=== PATIENT | female | born 1950 | race Two or more races ===

== ENCOUNTER 2021-07-29 10:19 | Inpatient (IN) | payer BC, MEDICARE ==
[~2021-07-29] VITALS: Ht 172.7 cm; Wt 72.8 kg
[2021-07-29] MEDS ORDERED: methylPREDNISolone SOD SUCC 125 MG/2 ML VL IV ONE (10:30)
[2021-07-29 12:05] LABS: Basophils # (auto) 0 10 ^3/uL (0-0.2); Basophils % (auto) 0.4 % (0.0-2.0); Eosinophils # (auto) 0 10 ^3/uL (0-0.8); Eosinophils % (auto) 0.2 % (0.0-7.0); Hematocrit 40.3 % (36.0-46.0); Lymphocytes # (auto) 0.7 10 ^3/uL (0.4-5.4); Lymphocytes % (auto) 15.7 % (10.0-50.0); Mean Corpuscular Hemoglobin 31.4 pg (28.0-32.0); Mean Corpuscular Hgb Conc. 34.7 g/dL (32.0-36.0); Mean Corpuscular Volume 90.3 fL (80.0-100.0); Monocytes # (auto) 0.3 10 ^3/uL (0-1.3); Monocytes % (auto) 6.8 % (0.0-12.0); Neutrophils # (auto) 3.2 10 ^3/uL (1.6-8.6); Neutrophils % (auto) 76.9 % (37.0-80.0); Nucleated Red Blood Cells % 0.1 %; Red Blood Cells 4.46 10^6/uL (4.0-5.20); Red Cell Distribution Width 13.4 % (11.8-14.3); White Blood Cell 4.2 10^3/uL (4.4-10.8)
[2021-07-29 13:12] LABS: Albumin 2.9 g/dL (3.4-5.0); BUN/Creatinine Ratio 16.4; Bilirubin, Total 0.2 mg/dL (0.2-1.0); CRP High Sensitivity 5.26 mg/dL (< 0.3); Calcium 8.3 mg/dL (8.5-10.1); Magnesium 2.7 mg/dL (1.6-2.6); Total Protein 7.1 g/dL (6.4-8.2)
[2021-07-29] MEDS ORDERED: MORPHINE SULFATE INJECTION 2 MG/ML SYRG IV PRN ×2 (13:15→14:45)
[2021-07-29] MEDS ORDERED: NITROGLYCERIN 0.4 MG SL TAB SL PRN ×2 (13:15→14:45)
[2021-07-29] MEDS ORDERED: diphenhdrAMINE HCL 25 MG CAP PO ONE ×2 (14:15→22:55)
[2021-07-29] MEDS ORDERED: DOCUSATE SOD 100 MG CAP PO PRN (14:45)
[2021-07-29] MEDS ORDERED: ACETAMINOPHEN 325 MG TAB PO PRN (14:45)
[2021-07-29] MEDS ORDERED: ACETAMINOPHEN 500 MG TAB PO PRN (14:45)
[2021-07-29] MEDS ORDERED: REMDESIVIR PER PHARMACY 0 ML IV SCH (14:45)
[2021-07-29] MEDS ORDERED: ALUM & MAG HYDROX-SIMETH LIQ(MAALOX) 30 ML PO PRN (14:45)
[2021-07-29] MEDS ORDERED: ALBUMIN 25% 100 ML IV ONE (15:00)
[2021-07-29] MEDS ORDERED: FAMOTIDINE (10MG/ML) 2ML VL IV ONE (15:00)
[2021-07-29] MEDS ORDERED: REMDESIVIR 200 MG in NS 210ml LOADING DOSE ADULT IV ONE (15:30)
[2021-07-29 15:36] LABS: Cholesterol 126 mg/dL (< 200)
[2021-07-29 15:39] LABS: HDL Cholesterol 41 mg/dL (40-59); LDL Cholesterol 71 mg/dL (< 100); Triglycerides 150 mg/dL (< 150)
[2021-07-29 15:43] LABS: Thyroid Stimulating Hormone 0.87 uIU/mL (0.358-3.74)
[2021-07-29 16:13] LABS: Urine Bacteria NONE SEEN /hpf (None Seen); Urine Blood Negative /uL (Negative); Urine Specific Gravity 1.006 (1.001-1.035); Urine WBC 1 /hpf (0 - 5)
[2021-07-29 16:20] LABS: Alcohol, Urine < 3.0 mg/dL (0-10); Amphetamine Screen, Urine NEGATIVE (NEGATIVE); Barbiturate Scree,Urine NEGATIVE (NEGATIVE); Benzodiazephine Screen, Urine NEGATIVE (NEGATIVE); Cannabinoid Screen, Urine NEGATIVE (NEGATIVE); Cocaine Screen, Urine NEGATIVE (NEGATIVE); Opiate Scree,Urine NEGATIVE (NEGATIVE); Phencyclidine Screen, Urine NEGATIVE (NEGATIVE)
[2021-07-29] MEDS: SODIUM CHLORIDE 0.9% 1,000 ML IV SCH (17:25)
[2021-07-29] MEDS: FUROSEMIDE 20 MG/2 ML VIAL IV SCH (18:14)
[2021-07-29] MEDS: BUDESONIDE (INHALATION) 180 MCG IH IN SCH (20:57)
[2021-07-29] MEDS: ALBUTEROL SULF HFA 90MCG INH 200DOSE IN PRN (20:57)
[2021-07-29] MEDS: POTASSIUM CHL 20 Meq TABLET PO SCH (22:00)
[2021-07-29] MEDS ORDERED: FAMOTIDINE (10MG/ML) 2ML VL IV SCH (22:00)
[2021-07-29] MEDS: ATORVASTATIN 20 MG TAB PO SCH (22:00)
[2021-07-29] MEDS: carBAMazepine 200 MG TAB PO SCH (22:01)
[2021-07-29] MEDS: ENOXAPARIN SOD 40 MG/0.4 ML SYRINGE SC SCH (22:01)
[2021-07-29] MEDS: DOXYCYCLINE 100MG/250ML 250 ML IV SCH (22:42)
[2021-07-29 23:28] VITALS: BP 109/64
[2021-07-30] MEDS: BUDESONIDE (INHALATION) 180 MCG IH IN SCH ×2 (06:15→20:59)
[2021-07-30] MEDS: carBAMazepine 200 MG TAB PO SCH ×3 (06:21→21:49)
[2021-07-30] MEDS: FUROSEMIDE 20 MG/2 ML VIAL IV SCH ×2 (06:21→17:12)
[2021-07-30] MEDS: SODIUM CHLORIDE 0.9% 1,000 ML IV SCH (06:22)
[2021-07-30] MEDS: ALBUTEROL SULF HFA 90MCG INH 200DOSE IN PRN ×2 (06:40→20:59)
[2021-07-30] MEDS: HYDROcodone-ACET 5/325MG TAB PO PRN ×2 (07:50→20:00)
[2021-07-30 07:55] LABS: Basophils # (auto) 0 10 ^3/uL (0-0.2); Basophils % (auto) 0.2 % (0.0-2.0); Eosinophils # (auto) 0 10 ^3/uL (0-0.8); Hematocrit 41.7 % (36.0-46.0); Lymphocytes % (auto) 23.1 % (10.0-50.0); Mean Corpuscular Hemoglobin 30.9 pg (28.0-32.0); Mean Corpuscular Hgb Conc. 33.5 g/dL (32.0-36.0); Mean Corpuscular Volume 92.2 fL (80.0-100.0); Monocytes # (auto) 0.4 10 ^3/uL (0-1.3); Monocytes % (auto) 9.6 % (0.0-12.0); Neutrophils % (auto) 67.1 % (37.0-80.0); Nucleated Red Blood Cells % 0.1 %; Red Blood Cells 4.53 10^6/uL (4.0-5.20); Red Cell Distribution Width 13.5 % (11.8-14.3); White Blood Cell 4.4 10^3/uL (4.4-10.8)
[2021-07-30 08:13] LABS: Albumin 3.5 g/dL (3.4-5.0); Calcium 8.6 mg/dL (8.5-10.1); Magnesium 2.5 mg/dL (1.6-2.6); Potassium 3.9 mmol/L (3.5-5.1)
[2021-07-30 08:21] LABS: BUN/Creatinine Ratio 18.8; Bilirubin, Total 0.3 mg/dL (0.2-1.0); Total Protein 7.9 g/dL (6.4-8.2); Uric Acid 2.9 mg/dL (2.6-6.0)
[2021-07-30 08:36] LABS: INR 0.99 (0.9-1.15); Partial Thromboplastin Time 31.8 sec (23.6-33.0)
[2021-07-30 09:23] LABS: Phosphorus 2.7 mg/dL (2.5-4.90)
[2021-07-30] MEDS: ASPirin 81 mg TAB PO SCH (09:57)
[2021-07-30] MEDS: ASCORBIC ACID 1,000 MG TAB PO SCH (09:57)
[2021-07-30] MEDS: POTASSIUM CHL 20 Meq TABLET PO SCH ×2 (09:57→21:48)
[2021-07-30] MEDS: CHOLECALCIFEROL (VITD3) 2,000 UNIT CAP/TAB PO SCH (09:58)
[2021-07-30] MEDS: ZINC SULFATE 220mg CAP or TAB PO SCH (09:58)
[2021-07-30] MEDS: ENOXAPARIN SOD 40 MG/0.4 ML SYRINGE SC SCH ×2 (09:58→21:49)
[2021-07-30] MEDS: DexAMETHasone SOD PHOS 10MG/1ML VIAL INJ IV SCH (09:58)
[2021-07-30] MEDS: DOXYCYCLINE 100MG/250ML 250 ML IV SCH (09:59)
[2021-07-30] MEDS ORDERED: IVERMECTIN 3 MG TAB PO SCH (10:00)
[2021-07-30] MEDS ORDERED: AZIT250T9 PO (10:04)
[2021-07-30] MEDS ORDERED: CARB200T4 PO (10:04)
[2021-07-30] MEDS ORDERED: ALBU108A5 INH (10:04)
[2021-07-30] MEDS ORDERED: PRED20TA2 PO (10:04)
[2021-07-30] MEDS ORDERED: FLUT50SP NAS (10:04)
[2021-07-30] MEDS ORDERED: CLON0.5T10 PO (10:04)
[2021-07-30] MEDS ORDERED: ERGOCALCIFEROL 50,000 UNIT(1.25MG) CAP PO SCH (13:00)
[2021-07-30] MEDS ORDERED: levoFLOXacin 500 MG TAB PO ONE (15:15)
[2021-07-30] MEDS: REMDESIVIR 100mg 100 MG in SODIUM CHL 0.9% 230 ML IV SCH (15:38)
[2021-07-30] MEDS ORDERED: CARB200T PO (16:21)
[2021-07-30] MEDS ORDERED: ATOR10TA PO (16:21)
[2021-07-30 17:00] VITALS: BP 104/68
[2021-07-30 21:23] VITALS: BP 95/60
[2021-07-30] MEDS: ATORVASTATIN 20 MG TAB PO SCH (21:48)
[2021-07-30] MEDS: LORazepam 0.5 MG TAB PO PRN (23:36)
[2021-07-31] MEDS: SODIUM CHLORIDE 0.9% 1,000 ML IV SCH (00:05)
[2021-07-31] MEDS ORDERED: diphenhdrAMINE HCL 50 MG/1 ML VL IV ONE (04:30)
[2021-07-31] MEDS: carBAMazepine 200 MG TAB PO SCH ×3 (05:24→22:20)
[2021-07-31] MEDS: FUROSEMIDE 20 MG/2 ML VIAL IV SCH ×2 (05:24→17:39)
[2021-07-31 05:30] VITALS: BP 101/64
[2021-07-31] MEDS: BUDESONIDE (INHALATION) 180 MCG IH IN SCH ×2 (07:12→19:28)
[2021-07-31 07:28] LABS: Potassium 4.2 mmol/L (3.5-5.1)
[2021-07-31 07:37] LABS: Albumin 3.4 g/dL (3.4-5.0); BUN/Creatinine Ratio 28.3; Bilirubin, Total 0.3 mg/dL (0.2-1.0); Calcium 8.5 mg/dL (8.5-10.1)
[2021-07-31 09:00] VITALS: BP 103/61
[2021-07-31] MEDS: ZINC SULFATE 220mg CAP or TAB PO SCH (10:00)
[2021-07-31] MEDS: ENOXAPARIN SOD 40 MG/0.4 ML SYRINGE SC SCH ×2 (10:00→22:20)
[2021-07-31] MEDS: DexAMETHasone SOD PHOS 10MG/1ML VIAL INJ IV SCH (10:00)
[2021-07-31] MEDS ORDERED: levoFLOXacin 500 MG TAB PO SCH (10:00)
[2021-07-31] MEDS: CHOLECALCIFEROL (VITD3) 2,000 UNIT CAP/TAB PO SCH (10:00)
[2021-07-31] MEDS: POTASSIUM CHL 20 Meq TABLET PO SCH ×2 (10:00→22:19)
[2021-07-31] MEDS: ASPirin 81 mg TAB PO SCH (10:00)
[2021-07-31] MEDS: ASCORBIC ACID 1,000 MG TAB PO SCH (10:00)
[2021-07-31] MEDS ORDERED: TEMAZEPAM 15 MG CAP PO PRN (11:15)
[2021-07-31] MEDS ORDERED: diphenhdrAMINE HCL 25 MG CAP PO PRN (11:15)
[2021-07-31] MEDS ORDERED: methylPREDNISolone SOD SUCC 40 MG/ML VL IM ONE (11:30)
[2021-07-31] MEDS ORDERED: methylPREDNISolone SOD SUCC 40 MG/ML VL IV ONE ×2 (12:15→15:15)
[2021-07-31 13:00] VITALS: BP 113/71
[2021-07-31] MEDS ORDERED: FAMOTIDINE 20 MG TAB PO ONE (14:00)
[2021-07-31] MEDS: REMDESIVIR 100mg 100 MG in SODIUM CHL 0.9% 230 ML IV SCH (14:50)
[2021-07-31] MEDS ORDERED: POLYETHYLENE GLYCOL 17 GM PWDR PO ONE (15:15)
[2021-07-31] MEDS ORDERED: guaiFENesin-CODEINE Liq 5 ML UD PO PRN (15:30)
[2021-07-31] MEDS: guaiFENesin 200 MG/10 ML UD PO PRN ×2 (16:09→22:21)
[2021-07-31 17:00] VITALS: BP 103/60
[2021-07-31] MEDS: ALBUTEROL SULF HFA 90MCG INH 200DOSE IN PRN (19:27)
[2021-07-31] MEDS: ATORVASTATIN 20 MG TAB PO SCH (22:20)
[2021-07-31 22:53] VITALS: BP 111/67
[2021-08-01 05:11] VITALS: BP 90/67
[2021-08-01] MEDS: FUROSEMIDE 20 MG/2 ML VIAL IV SCH (06:00)
[2021-08-01] MEDS: carBAMazepine 200 MG TAB PO SCH ×3 (06:12→22:00)
[2021-08-01] MEDS: ALBUTEROL SULF HFA 90MCG INH 200DOSE IN PRN ×2 (06:17→21:56)
[2021-08-01] MEDS: BUDESONIDE (INHALATION) 180 MCG IH IN SCH ×2 (06:17→21:56)
[2021-08-01 07:33] LABS: Potassium 4.1 mmol/L (3.5-5.1)
[2021-08-01 07:40] LABS: Albumin 3.1 g/dL (3.4-5.0); BUN/Creatinine Ratio 34.8; Bilirubin, Total 0.3 mg/dL (0.2-1.0); Calcium 8.3 mg/dL (8.5-10.1); Total Protein 6.5 g/dL (6.4-8.2)
[2021-08-01 09:00] VITALS: BP 95/56
[2021-08-01] MEDS: ZINC SULFATE 220mg CAP or TAB PO SCH (10:02)
[2021-08-01] MEDS: ASPirin 81 mg TAB PO SCH (10:02)
[2021-08-01] MEDS: DexAMETHasone SOD PHOS 10MG/1ML VIAL INJ IV SCH (10:02)
[2021-08-01] MEDS: ENOXAPARIN SOD 40 MG/0.4 ML SYRINGE SC SCH ×2 (10:03→22:00)
[2021-08-01] MEDS: CHOLECALCIFEROL (VITD3) 2,000 UNIT CAP/TAB PO SCH (10:03)
[2021-08-01] MEDS: FAMOTIDINE 20 MG TAB PO SCH (10:03)
[2021-08-01] MEDS: ASCORBIC ACID 1,000 MG TAB PO SCH (10:04)
[2021-08-01] MEDS: POTASSIUM CHL 20 Meq TABLET PO SCH (10:04)
[2021-08-01 12:45] VITALS: BP 105/60
[2021-08-01] MEDS: REMDESIVIR 100mg 100 MG in SODIUM CHL 0.9% 230 ML IV SCH (14:39)
[2021-08-01 17:00] VITALS: BP 103/62
[2021-08-01] MEDS: HYDROcodone-ACET 5/325MG TAB PO PRN (20:26)
[2021-08-01 22:00] VITALS: BP 95/45
[2021-08-01] MEDS: ATORVASTATIN 20 MG TAB PO SCH (22:00)
[2021-08-02] VITALS (8 sets, daily range): BP systolic 92–143; BP diastolic 45–86
[2021-08-02] MEDS: carBAMazepine 200 MG TAB PO SCH ×3 (05:21→21:10)
[2021-08-02 06:00] LABS: Basophils # (auto) 0 10 ^3/uL (0-0.2); Basophils % (auto) 0.4 % (0.0-2.0); Eosinophils # (auto) 0 10 ^3/uL (0-0.8); Eosinophils % (auto) 0.1 % (0.0-7.0); Hematocrit 37.6 % (36.0-46.0); Hemoglobin 13.1 g/dL (12.2-16.2); Lymphocytes # (auto) 0.8 10 ^3/uL (0.4-5.4); Lymphocytes % (auto) 14.4 % (10.0-50.0); Mean Corpuscular Hemoglobin 30.8 pg (28.0-32.0); Mean Corpuscular Hgb Conc. 34.9 g/dL (32.0-36.0); Mean Corpuscular Volume 88.3 fL (80.0-100.0); Monocytes # (auto) 0.5 10 ^3/uL (0-1.3); Neutrophils # (auto) 4.1 10 ^3/uL (1.6-8.6); Neutrophils % (auto) 76.1 % (37.0-80.0); Red Blood Cells 4.25 10^6/uL (4.0-5.20); White Blood Cell 5.4 10^3/uL (4.4-10.8)
[2021-08-02 06:35] LABS: BUN/Creatinine Ratio 32.6; Bilirubin, Total 0.3 mg/dL (0.2-1.0); Calcium 8.7 mg/dL (8.5-10.1); Total Protein 6.5 g/dL (6.4-8.2)
[2021-08-02] MEDS: ONDANSETRON HCL 4 MG/2 ML VIAL IV PRN ×2 (06:58→17:28)
[2021-08-02] MEDS: MORPHINE SULFATE INJECTION 2 MG/ML SYRG IV PRN ×2 (06:59→17:29)
[2021-08-02] MEDS: BUDESONIDE (INHALATION) 180 MCG IH IN SCH ×2 (07:03→21:34)
[2021-08-02] MEDS: ALBUTEROL SULF HFA 90MCG INH 200DOSE IN PRN ×2 (07:03→21:34)
[2021-08-02] MEDS: ZINC SULFATE 220mg CAP or TAB PO SCH (09:44)
[2021-08-02] MEDS: CHOLECALCIFEROL (VITD3) 2,000 UNIT CAP/TAB PO SCH (09:44)
[2021-08-02] MEDS: POTASSIUM CHL 20 Meq TABLET PO SCH (09:44)
[2021-08-02] MEDS: ASPirin 81 mg TAB PO SCH (09:44)
[2021-08-02] MEDS: ASCORBIC ACID 1,000 MG TAB PO SCH (09:46)
[2021-08-02] MEDS: DexAMETHasone SOD PHOS 10MG/1ML VIAL INJ IV SCH (09:46)
[2021-08-02] MEDS: FAMOTIDINE 20 MG TAB PO SCH (09:46)
[2021-08-02] MEDS: ENOXAPARIN SOD 40 MG/0.4 ML SYRINGE SC SCH ×2 (09:46→21:11)
[2021-08-02] MEDS: FUROSEMIDE 20 MG/2 ML VIAL IV SCH (09:47)
[2021-08-02] MEDS: REMDESIVIR 100mg 100 MG in SODIUM CHL 0.9% 230 ML IV SCH (15:05)
[2021-08-02] MEDS: ATORVASTATIN 20 MG TAB PO SCH (21:10)
[2021-08-03 05:00] VITALS: BP 96/66
[2021-08-03] MEDS: carBAMazepine 200 MG TAB PO SCH ×3 (06:11→20:09)
[2021-08-03] MEDS: BUDESONIDE (INHALATION) 180 MCG IH IN SCH ×2 (07:45→19:53)
[2021-08-03] MEDS: ALBUTEROL SULF HFA 90MCG INH 200DOSE IN PRN ×2 (07:45→19:53)
[2021-08-03 09:00] VITALS: BP 100/63
[2021-08-03] MEDS: ASCORBIC ACID 1,000 MG TAB PO SCH (10:23)
[2021-08-03] MEDS: FAMOTIDINE 20 MG TAB PO SCH (10:23)
[2021-08-03] MEDS: DexAMETHasone SOD PHOS 10MG/1ML VIAL INJ IV SCH (10:24)
[2021-08-03] MEDS: ZINC SULFATE 220mg CAP or TAB PO SCH (10:24)
[2021-08-03] MEDS: ASPirin 81 mg TAB PO SCH (10:24)
[2021-08-03] MEDS: POTASSIUM CHL 20 Meq TABLET PO SCH (10:24)
[2021-08-03] MEDS: CHOLECALCIFEROL (VITD3) 2,000 UNIT CAP/TAB PO SCH (10:24)
[2021-08-03] MEDS: ENOXAPARIN SOD 40 MG/0.4 ML SYRINGE SC SCH ×2 (10:25→20:09)
[2021-08-03] MEDS: FUROSEMIDE 20 MG/2 ML VIAL IV SCH (10:25)
[2021-08-03 13:00] VITALS: BP 102/61
[2021-08-03 17:00] VITALS: BP 111/69
[2021-08-03] MEDS ORDERED: LACTULOSE 20Gm/30ML SOLN PO ONE (19:00)
[2021-08-03 20:00] VITALS: BP 109/51
[2021-08-03] MEDS: ATORVASTATIN 20 MG TAB PO SCH (20:09)
[2021-08-03] MEDS: HYDROcodone-ACET 5/325MG TAB PO PRN (20:10)
[2021-08-03 21:23] VITALS: BP 110/61
[2021-08-04 05:39] VITALS: BP_SYST 113; BP_SYST 97; BP_DIAS 65
[2021-08-04] MEDS: carBAMazepine 200 MG TAB PO SCH ×4 (06:00→21:50)
[2021-08-04] MEDS: BUDESONIDE (INHALATION) 180 MCG IH IN SCH ×2 (07:46→21:48)
[2021-08-04] MEDS: ALBUTEROL SULF HFA 90MCG INH 200DOSE IN PRN ×2 (07:46→21:48)
[2021-08-04 09:00] VITALS: BP 102/59
[2021-08-04] MEDS: FAMOTIDINE 20 MG TAB PO SCH (10:30)
[2021-08-04] MEDS: ASPirin 81 mg TAB PO SCH (10:30)
[2021-08-04] MEDS: DexAMETHasone SOD PHOS 10MG/1ML VIAL INJ IV SCH (10:31)
[2021-08-04] MEDS: ASCORBIC ACID 1,000 MG TAB PO SCH (10:31)
[2021-08-04] MEDS: POTASSIUM CHL 20 Meq TABLET PO SCH (10:31)
[2021-08-04] MEDS: CHOLECALCIFEROL (VITD3) 2,000 UNIT CAP/TAB PO SCH (10:31)
[2021-08-04] MEDS: ZINC SULFATE 220mg CAP or TAB PO SCH (10:31)
[2021-08-04] MEDS: ENOXAPARIN SOD 40 MG/0.4 ML SYRINGE SC SCH ×2 (10:32→21:49)
[2021-08-04] MEDS: FUROSEMIDE 20 MG/2 ML VIAL IV SCH (10:32)
[2021-08-04 13:00] VITALS: BP 106/62
[2021-08-04] MEDS: HYDROcodone-ACET 5/325MG TAB PO PRN (15:07)
[2021-08-04 17:00] VITALS: BP 107/70
[2021-08-04] MEDS: ATORVASTATIN 20 MG TAB PO SCH (21:50)
[2021-08-04 22:00] VITALS: BP 102/63
[2021-08-05] MEDS: LORazepam 0.5 MG TAB PO PRN (02:30)
[2021-08-05] MEDS: HYDROcodone-ACET 5/325MG TAB PO PRN (02:31)
[2021-08-05 05:00] VITALS: BP 98/62
[2021-08-05] MEDS: ALBUTEROL SULF HFA 90MCG INH 200DOSE IN PRN (05:54)
[2021-08-05] MEDS: BUDESONIDE (INHALATION) 180 MCG IH IN SCH (05:54)
[2021-08-05] MEDS: carBAMazepine 200 MG TAB PO SCH ×2 (06:14→13:22)
[2021-08-05 09:00] VITALS: BP 95/68
[2021-08-05] MEDS: DexAMETHasone SOD PHOS 10MG/1ML VIAL INJ IV SCH (10:08)
[2021-08-05] MEDS: FUROSEMIDE 20 MG/2 ML VIAL IV SCH (10:08)
[2021-08-05] MEDS: ASPirin 81 mg TAB PO SCH (10:08)
[2021-08-05] MEDS: ZINC SULFATE 220mg CAP or TAB PO SCH (10:08)
[2021-08-05] MEDS: CHOLECALCIFEROL (VITD3) 2,000 UNIT CAP/TAB PO SCH (10:09)
[2021-08-05] MEDS: ENOXAPARIN SOD 40 MG/0.4 ML SYRINGE SC SCH (10:09)
[2021-08-05] MEDS: ASCORBIC ACID 1,000 MG TAB PO SCH (10:09)
[2021-08-05] MEDS: FAMOTIDINE 20 MG TAB PO SCH (10:09)
[2021-08-05] MEDS: POTASSIUM CHL 20 Meq TABLET PO SCH (10:09)
[2021-08-05 12:49] VITALS: BP 91/57
== END 2021-08-05 17:09 | disposition home or self-care (01) | DRG 177 ==
LOC: ER 10:19 → EDBD 10:19 → TELE 13:04 → TELE-EAST 07-30 15:59
PROVIDERS: ADMIT Hospitalist; ATTEND Internal Medicine
PROC: XW033E5 Introduction of Remdesivir Anti-infective into Peripheral Vein, Percutaneous Approach, New Technology Group 5 (ICD-10-PCS; principal; 2021-07-29)
DX: U07.1 COVID-19 (principal); J12.82 Pneumonia due to coronavirus disease 2019; J96.21 Acute and chronic respiratory failure with hypoxia; J44.1 Chronic obstructive pulmonary disease with (acute) exacerbation; J45.901 Unspecified asthma with (acute) exacerbation; D68.59 Other primary thrombophilia; J44.0 Chronic obstructive pulmonary disease with (acute) lower respiratory infection; N13.6 Pyonephrosis; D89.834 Cytokine release syndrome, grade 4; R65.10 Systemic inflammatory response syndrome (SIRS) of non-infectious origin without acute organ dysfunction; F39 Unspecified mood [affective] disorder; E88.09 Other disorders of plasma-protein metabolism, not elsewhere classified; F41.9 Anxiety disorder, unspecified; M81.0 Age-related osteoporosis without current pathological fracture; E78.5 Hyperlipidemia, unspecified; K59.00 Constipation, unspecified; M19.90 Unspecified osteoarthritis, unspecified site; Z83.3 Family history of diabetes mellitus; Z88.8 Allergy status to other drugs, medicaments and biological substances
CPT/HCPCS: 36415; 36600; 71045; 74018; 76705; 80053; 80061; 80307; 81001; 82306; 82728; 82805; 83036; 83605; 83615; 83735; 83880; 84100; 84443; 84484; 84550; 85025; 85379; 85610; 85730; 86141; 87040; 87086; 87426; 93005; 94640; 96374; 97110; 97116; 97530; 99291; G0378; J1100; J2405; J3490; P9047

== ENCOUNTER 2023-03-21 09:35 | Emergency (ER) | payer MEDICARE, OTHER ==
[~2023-03-21] VITALS: Ht 170.2 cm; Wt 80.3 kg
[~2023-03-21 09:35] MED LIST: ALBU108A5 INH; ATOR10TA PO; AZIT-43 PO; CARB200T PO; CARB200T4 PO; CLON0.5T4 PO; FLUT50SP NAS; PRED20TA2 PO
[2023-03-21 09:46] VITALS: BP 131/64
[2023-03-21] MEDS ORDERED: PRED20TA2 PO (11:01)
== END 2023-03-21 11:12 | disposition home or self-care (01) ==
LOC: ER 09:35
DX: M50.10 Cervical disc disorder with radiculopathy, unspecified cervical region (principal); Z98.51 Tubal ligation status; Z88.0 Allergy status to penicillin; Z88.6 Allergy status to analgesic agent
CPT/HCPCS: 72040

== ENCOUNTER 2024-06-24 03:52 | Emergency (ER) | payer BC, MEDICARE, OTHER ==
[~2024-06-24] VITALS: Ht 170.2 cm; Wt 75.0 kg
[2024-06-24 04:24] VITALS: PULSE 59; RESP 13; O2SAT 96
[2024-06-24] MEDS: MORPHINE SULFATE 4 MG/ML SYR/VIAL IV ONE (04:58)
[2024-06-24] MEDS: ONDANSETRON HCL 4 MG/2 ML VIAL IV ONE ×2 (04:59→10:17)
[2024-06-24] MEDS: SODIUM CHLORIDE 0.9% 1,000 ML IV ONE ×2 (04:59→11:30)
[2024-06-24] MEDS: PANTOPRAZOLE 40 MG/10 ML VIAL INJ IV ONE (04:59)
[2024-06-24 05:57] LABS: Urine Bacteria None Seen /hpf (None Seen)
[2024-06-24 06:05] LABS: Urine Blood Negative /uL (Negative); Urine Clarity Clear (Clear); Urine Color Light-Yellow (Yellow); Urine Mucus FEW (None Seen); Urine Protein, UAD Negative (Negative); Urine Specific Gravity 1.011 (1.001-1.035); Urine Urobilinogen Normal (Negative); Urine WBC 1 /hpf (0 - 5)
[2024-06-24] MEDS ORDERED: PIPERACILLIN-TAZO 4.5GM 100 ML IV ONE (06:15)
[2024-06-24 06:31] LABS: Basophils # (auto) 0 10 ^3/uL (0-0.2); Basophils % (auto) 0.2 % (0.0-2.0); Eosinophils # (auto) 0 10 ^3/uL (0-0.8); Eosinophils % (auto) 0.2 % (0.0-7.0); Hematocrit 36.9 % (36.0-46.0); Lymphocytes % (auto) 12.3 % (10.0-50.0); Mean Corpuscular Hemoglobin 31.9 pg (28.0-32.0); Mean Corpuscular Hgb Conc. 35.2 g/dL (32.0-36.0); Mean Corpuscular Volume 90.7 fL (80.0-100.0); Monocytes # (auto) 0.5 10 ^3/uL (0-1.3); Monocytes % (auto) 5.9 % (0.0-12.0); Neutrophils # (auto) 6.9 10 ^3/uL (1.6-8.6); Neutrophils % (auto) 81.4 % (37.0-80.0); Platelet Count (auto) 198 10^3/uL (140-450); Red Blood Cells 4.06 10^6/uL (4.0-5.20); Red Cell Distribution Width 13.4 % (11.8-14.3); White Blood Cell 8.5 10^3/uL (4.4-10.8)
[2024-06-24 06:43] LABS: INR 1.07 (0.9-1.15); Prothrombin Time 11.3 sec (9.3-11.8)
[2024-06-24 06:53] LABS: Alanine Aminotransferase 20 U/L (7-40); Albumin 4.1 g/dL (3.2-4.8); Alkaline Phosphatase 123 U/L (46-116); Anion Gap 7 (5-15); Aspartate Aminotransferase 15 U/L (13-40); BUN/Creatinine Ratio 18.2 (10.0-20.0); Bilirubin, Total 0.3 mg/dL (0.2-1.0); Blood Urea Nitrogen 10 mg/dL (9-23); Calcium 8.8 mg/dL (8.7-10.4); Carbon Dioxide 25 mmol/L (20-31); Chloride 106 mmol/L (98-107); Glucose 109 mg/dL (74-106); Potassium 3.6 mmol/L (3.5-5.1); Sodium 138 mmol/L (136-145)
[2024-06-24 06:54] LABS: Total Protein 6.6 g/dL (5.7-8.2)
[2024-06-24 07:30] VITALS: PULSE 96; RESP 18; O2SAT 96
[2024-06-24] MEDS: levoFLOXacin 500MG 100 ML IV ONE (08:31)
[2024-06-24] MEDS: metroNIDAZOLE 500MG/100ML 100 ML IV ONE (08:31)
[2024-06-24] MEDS: ONDANSETRON HCL 4 MG/2 ML VIAL IM ONE (10:08)
[2024-06-24] MEDS: MORPHINE SULFATE INJ 2 MG/ml SYRG IV ONE (10:19)
[2024-06-24] MEDS: MORPHINE SULFATE INJ 2 MG/ml SYRG IV PRN (14:22)
[2024-06-24 14:30] VITALS: BP 114/47; PULSE 65; RESP 18; TEMP 97.1; O2SAT 96
== END 2024-06-24 14:52 | disposition short-term general hospital (02) ==
LOC: ER 03:52 → EDBD 03:52 → ER 14:52
DX: K52.9 Noninfective gastroenteritis and colitis, unspecified (principal); K92.2 Gastrointestinal hemorrhage, unspecified; F41.9 Anxiety disorder, unspecified; M19.90 Unspecified osteoarthritis, unspecified site; E78.5 Hyperlipidemia, unspecified; Z98.890 Other specified postprocedural states; Z88.0 Allergy status to penicillin; Z88.5 Allergy status to narcotic agent; Z88.8 Allergy status to other drugs, medicaments and biological substances; Z91.041 Radiographic dye allergy status; Z79.899 Other long term (current) drug therapy
CPT/HCPCS: 36415; 74176; 80053; 81001; 85025; 85610; 85730; 86850; 86900; 86901; 93005; 96361; 96365; 96368; 96372; 96375; 96376; 99291; J1956; J2270; J2405; J2470; J3490; J7030